=== PATIENT | female | born 1955 | race Caucasian/White ===

== ENCOUNTER → 2022-01-28 | Outpatient (CLI) | payer MEDICARE ==
[~2022-01-28] MED LIST: ADVIL200 MG PO; AMOXICILLIN 8751 TAB PO; B-12 100 MCG; CALCIUM + D 6001 TA1 PO; CIPRO 250MG TA250 MG PO; COLACE 100100 MG/CAP PO; DOXYCYCLINE 10100 MG PO; ELITE MAGNESIUM1 TAB PO; FERROUS GLUCONA27 MG PO; INSLANT SQ; INSULIN; INSULIN N (N100 U/ML SQ; LANTUS100 U/ML SC; LEVAMIR INSULIN; LEVOTHYROXINE PO; LEXAPRO20 MG PO; MIRALAX PA17 GM/Dose PO; MULTIPLE VITAMI1 CAP PO; NEURONTIN100 MG/CAP PO; NO HOME MEDICATIONS; NORCO 325 MG-7.1 TAB PO; NOVLOG SQ; NOVOLOG 100U100 U/M1 SC; NOVOLOG 100U100 U/M1 SQ; POTASSIMIN75 MG PO; POTASSIUM99 MG PO; PROGESTRONE; PROVERA 10MG10 MG PO; SANTYL OINT15 GM TP; SENOKOT S 50 MG1 TAB PO; SILVADEN TP; SIMETHICONE80 MG PO; THERAGRAN1 TA1 PO; TYLENOL 325MG325 MG PO; VITAMIN C500 MG PO; VITAMIN E100 I3 PO; ZESTRIL 5MG5 MG PO; ZINC10 M1 PO
== END ==
LOC: MC.RAD 09:48
DX: Z12.31 Encounter for screening mammogram for malignant neoplasm of breast (principal)

== ENCOUNTER → 2022-06-24 | Outpatient (CLI) | payer MEDICARE ==
[2022-06-24 13:09] LABS: HEMOGLOBIN 11.5 g/dl (12.5-16.0); MEAN CELL VOLUME 93 fl (80.0-100.0); MEAN CORPUSCULAR HEMOGLOBIN 31 pg (27-31); MEAN CORPUSCULAR HGB CONC 33 g/dl (33.0-37.0); MEAN PLATELET VOLUME 8.9 fl (7.4-10.4); PLATELET COUNT 185 K/mm3 (130-400); RED BLOOD COUNT 3.74 M/mm3 (4.10-5.30); REDCELL DISTRIBUTION WIDTH-CV 12.4 % (11.5-14.5)
[2022-06-24 13:16] LABS: HEMATOCRIT 34.7 % (37.0-47.0)
[2022-06-24 13:30] LABS: ALBUMIN 2.4 gm/dL (3.4-4.8); BILIRUBIN,TOTAL 1.2 mg/dL (0.2-1.2); CALCIUM 9.7 mg/dL (8.4-10.2); CREATININE, serum 0.92 mg/dL (0.57-1.11); POTASSIUM 4.1 mmol/L (3.5-4.5); TOTAL PROTEIN 6.9 gm/dL (6.2-8.1)
[2022-06-24 14:15] LABS: BAND 6 % (0-10); LYMPHOCYTE 6 % (20.0-51.0); METAMYELOCYTE 4 % (0-0); MYELOCYTE 1 % (0-0); NEUTROPHILS 81 % (42.0-75.2)
[2022-06-24 14:19] LABS: PLATELET ESTIMATE NORMAL (NORMAL)
[2022-06-26 07:57] LABS: PATHOLOGY DIFF REVIEW OK
== END ==
LOC: COL.LAB 12:39
PROVIDERS: Nurse Practitioner Family
DX: R19.04 Left lower quadrant abdominal swelling, mass and lump (principal)

== ENCOUNTER 2022-06-30 11:38 | Inpatient (IN) | payer MEDICARE ==
[~2022-06-30] VITALS: Ht 149.9 cm; Wt 133.5 kg
[2022-06-30] VITALS (10 sets, daily range): BP systolic 101–131; BP diastolic 34–54; PULSE 69–81; TEMP 98.3–99.8
--- NOTE | 2022-06-30 13:40 | NUR ---
PT BROUGHT TO ROOM 332 VIA WHEELCHAIR. PT A&O AND INDEPENDENT IN ROOM.
--- NOTE | 2022-06-30 15:13 | NUR ---
PT A&OX4 RESTING IN BED. ADMISSION ASSESSMENT COMPLETE. PT RATES ABDOMINAL PN A 03/08. REDNESS PRESENT. VSS. PT USES CANE FOR AMBULATION. PLAN FOR OR AT 1630 FOR ABCESS DRAIN PLACEMENT. NO NEEDS AT THIS TIME. CALL LIGHT WITHIN REACH.
[2022-06-30 15:44] LABS: HEMOGLOBIN 11.1 g/dl (12.5-16.0); MEAN CELL VOLUME 94 fl (80.0-100.0); MEAN CORPUSCULAR HEMOGLOBIN 31 pg (27-31); MEAN CORPUSCULAR HGB CONC 33 g/dl (33.0-37.0); MEAN PLATELET VOLUME 8.9 fl (7.4-10.4); PLATELET COUNT 222 K/mm3 (130-400); RED BLOOD COUNT 3.64 M/mm3 (4.10-5.30); REDCELL DISTRIBUTION WIDTH-CV 12.6 % (11.5-14.5)
[2022-06-30 15:48] LABS: HEMATOCRIT 34.2 % (37.0-47.0)
[2022-06-30 16:07] LABS: ALBUMIN 2.1 gm/dL (3.4-4.8); BILIRUBIN,TOTAL 0.5 mg/dL (0.2-1.2); CALCIUM 8.6 mg/dL (8.4-10.2); CREATININE, serum 0.82 mg/dL (0.57-1.11); POTASSIUM 3.7 mmol/L (3.5-4.5); TOTAL PROTEIN 6.3 gm/dL (6.2-8.1)
[2022-06-30] MEDS ORDERED: ULTRAM 50MG TAB50 MG PO (16:24)
[2022-06-30] MEDS ORDERED: AMOXICILLIN 8751 TAB PO (16:25)
[2022-06-30] MEDS ORDERED: GLUCOPHAGE1000 MG PO (16:26)
[2022-06-30] MEDS ORDERED: NEURONTIN300 MG/CAP PO (16:27)
[2022-06-30] MEDS ORDERED: SYNTHROID0.05 MG/TA PO (16:28)
[2022-06-30] MEDS ORDERED: WELLBUTRIN SR100 M1 PO (16:28)
[2022-06-30] MEDS ORDERED: FOSAMAX 70MG TA70 MG PO (16:29)
[2022-06-30] MEDS ORDERED: AMARYL 2MG T2 MG/TAB PO (16:29)
[2022-06-30] MEDS ORDERED: COZAAR 50MG50 MG/TAB PO (16:30)
[2022-06-30] MEDS ORDERED: LEXAPRO20 MG PO (16:31)
[2022-06-30] MEDS ORDERED: CYMBALTA 60MG60 MG PO (16:34)
[2022-06-30 16:45] LABS: BAND 9 % (0-10); LYMPHOCYTE 12 % (20.0-51.0); METAMYELOCYTE 1 % (0-0); NEUTROPHILS 71 % (42.0-75.2); PLATELET ESTIMATE NORMAL (NORMAL)
[2022-06-30 16:46] LABS: HYPOCHROMIA 1+
--- NOTE | 2022-06-30 22:15 | NUR ---
Patient A/Ox4, with IV infusing well to left hand, dressing to abdomen CDI, denies nausea/vomiting, BP is on the low side, denies any dizziness, able to get up the the bathroom and urinated and had a loose bm, call light and personal items within reach, will continue to monitor.
[2022-07-01 03:35] VITALS: BP 107/43; PULSE 69; TEMP 99.3
--- NOTE | 2022-07-01 06:17 | NUR ---
Patient got up to the bathroom to pee, noticed a scant amount of drainage serosangenous fluids, reinforced the dressing with 4x4 gauze and ,microfoam, will continue to monitor.
[2022-07-01 08:00] VITALS: BP 116/66; PULSE 75; TEMP 98
[2022-07-01 11:36] VITALS: BP 115/49; PULSE 70; TEMP 98.7
--- NOTE | 2022-07-01 12:00 | NUR ---
Dressing to abd is leaking. Bulky dressing removed. pt does have gauze in wound which I left in place. New gauze and ABD applied over open wound and foam tape held in place. pt tolerated well. Pt is getting up around in her room independently. States that only has some pulling when she gets up, otherwise pain is not bad. No other needs, call light within reach
--- NOTE | 2022-07-01 13:40 | NUR ---
SW met with the patient to discuss discharge plan. The patient lives alone in [place]. She reports independence with ADLs and has a cane. The patient's PCP is Dr. Rui Benitez and she receives her medications from [facility]. The patient's DPOA-HC is in EMR and it designates her cousin, Kimber Meléndez (ph#[phone]). The alternate is her friend, Anaya Tran. The patient plans to return home upon discharge. She states that she does not drive anymore and her friends assist her with transportation. No additional needs at this time. *Discharge plan: home*
[2022-07-01 15:38] VITALS: BP 108/35; PULSE 80; TEMP 99
--- NOTE | 2022-07-01 16:24 | NUR ---
Pt continues to do well. Receiving IV antibiotics. Drsg CDI at this time. PRN Tylenol given for increase in abd pain
[2022-07-01 19:32] VITALS: BP 111/47; PULSE 74; TEMP 100.1
[2022-07-01 23:32] VITALS: BP 122/42; PULSE 75; TEMP 99.3
[2022-07-02 03:36] VITALS: BP 114/44; PULSE 67; TEMP 98.6
--- NOTE | 2022-07-02 06:28 | NUR ---
ABD PAD AND TAPE CHANGED 2X THIS SHIFT DUE TO DRAINAGE. PACKING TAIL CUT TO AVOID PERIAREA CONTAMINATION.
[2022-07-02 07:33] VITALS: BP 117/36; PULSE 65; TEMP 97.8
[2022-07-02 07:50] LABS: MEAN CELL VOLUME 95 fl (80.0-100.0); MEAN CORPUSCULAR HEMOGLOBIN 31 pg (27-31); MEAN CORPUSCULAR HGB CONC 32 g/dl (33.0-37.0); PLATELET COUNT 218 K/mm3 (130-400); RED BLOOD COUNT 3.28 M/mm3 (4.10-5.30)
[2022-07-02 07:54] LABS: HEMATOCRIT 31.1 % (37.0-47.0)
[2022-07-02 08:07] LABS: CALCIUM 7.8 mg/dL (8.4-10.2); CREATININE, serum 0.7 mg/dL (0.57-1.11); POTASSIUM 3.7 mmol/L (3.5-4.5)
[2022-07-02 08:46] LABS: BAND 1 % (0-10); EOSINOPHIL 3 % (0-4); HYPOCHROMIA 1+; LYMPHOCYTE 14 % (20.0-51.0); METAMYELOCYTE 2 % (0-0); MYELOCYTE 6 % (0-0); NEUTROPHILS 66 % (42.0-75.2); PLATELET ESTIMATE NORMAL (NORMAL)
[2022-07-02 12:00] VITALS: PULSE 72
[2022-07-02 15:27] VITALS: BP 125/50; PULSE 72; TEMP 98.9
--- NOTE | 2022-07-02 19:30 | NUR ---
RECEIVED CHANGE OF SHIFT REPORT FROM DAY SHIFT RN.
[2022-07-02 20:29] VITALS: BP 112/40; PULSE 67; TEMP 99
--- NOTE | 2022-07-02 23:35 | NUR ---
DRSG CHANGE TO SURGICAL SITE.
[2022-07-03 00:02] VITALS: BP 116/47; PULSE 69; TEMP 99.2
[2022-07-03 04:52] VITALS: BP 118/43; PULSE 67; TEMP 98.4
[2022-07-03 06:31] LABS: HEMOGLOBIN 10.4 g/dl (12.5-16.0); MEAN CELL VOLUME 96 fl (80.0-100.0); MEAN CORPUSCULAR HEMOGLOBIN 30 pg (27-31); MEAN CORPUSCULAR HGB CONC 32 g/dl (33.0-37.0); MEAN PLATELET VOLUME 8.9 fl (7.4-10.4); PLATELET COUNT 231 K/mm3 (130-400); RED BLOOD COUNT 3.42 M/mm3 (4.10-5.30)
[2022-07-03 06:39] LABS: HEMATOCRIT 32.7 % (37.0-47.0)
--- NOTE | 2022-07-03 06:44 | NUR ---
CHANGE OF SHIFT REPORT GIVEN TO DAY SHIFT RNPEMA. PATIENT UP IN ROOM PER SELF. INT CONTINUES, CONTINUES ON IV ANTIBIOTICS.
[2022-07-03 07:33] VITALS: BP 122/51; PULSE 71; TEMP 98.5
[2022-07-03 07:39] LABS: BAND 9 % (0-10); EOSINOPHIL 5 % (0-4); LYMPHOCYTE 6 % (20.0-51.0); METAMYELOCYTE 4 % (0-0); NEUTROPHILS 70 % (42.0-75.2); PLATELET ESTIMATE NORMAL (NORMAL)
--- NOTE | 2022-07-03 08:00 | NUR ---
Assessment complete. A&Ox4. Denies nausea/shortness of breath. Rating pain 6/10-states she woke up with a headache. Tylenol given per dr order. Dressing to abdomen CDI. VS stable. INT to left hand flushes without difficulty. Plan of care discussed for this shift to include meds/pain control/calling for questions/concerns. Verbalizes understanding. Call light in reach. Will monitor.
--- NOTE | 2022-07-03 09:45 | NUR ---
Dr Purdy at bedside for rounds. Packing to incision site changed at this time. Call light in reach. Will monitor.
--- NOTE | 2022-07-03 12:00 | NUR ---
Resting in bed watching TV. Denies current needs. Call light in reach. Will monitor.
[2022-07-03 12:22] VITALS: BP 135/45; PULSE 72; TEMP 97.5
--- NOTE | 2022-07-03 15:07 | NUR ---
The PA notified [facility] that the patient had some questions about home health. TINO met with the patient to follow up and discuss home health services. The patient states that she was interested in home health if she needed wound care, but does not believe she will need would care now. [facility] staffed with the PA and they do not believe the patient will need wound care. TINO provided the patient with Medicare.gov's list of home health agencies that serve [place], in the event she would need wound care or the patient changes her mind. TINO provided her with [facility]'s phone number. *Discharge plan: home*
[2022-07-03 16:43] VITALS: BP 113/51; PULSE 66; TEMP 98.1
--- NOTE | 2022-07-03 18:21 | NUR ---
Patient had an uneventful day. Received tylenol x1 for headache this AM. Blood sugars range from 140s-220s. Dressing to abdomen remains CDI. VS remain stable. Denies current questions/concerns. Call light in reach. Will monitor.
[2022-07-03 20:49] VITALS: BP 119/48; PULSE 69; TEMP 98.4
--- NOTE | 2022-07-03 21:00 | NUR ---
Patient A/Ox4, VSS, NAD, dressing to abdomen clean, dry and intact, denies pain at the time of assessment, HS meds given, call light and personal items within reach, call light and personal items within reach.
[2022-07-04 00:05] VITALS: BP 146/56; PULSE 71; TEMP 98.4
[2022-07-04 04:43] VITALS: BP 113/41; PULSE 69; TEMP 98.2
[2022-07-04 07:16] LABS: HEMOGLOBIN 10.2 g/dl (12.5-16.0); MEAN CELL VOLUME 97 fl (80.0-100.0); MEAN CORPUSCULAR HEMOGLOBIN 30 pg (27-31); MEAN CORPUSCULAR HGB CONC 31 g/dl (33.0-37.0); MEAN PLATELET VOLUME 8.9 fl (7.4-10.4); PLATELET COUNT 245 K/mm3 (130-400); RED BLOOD COUNT 3.41 M/mm3 (4.10-5.30)
[2022-07-04 07:22] LABS: HEMATOCRIT 33.1 % (37.0-47.0)
[2022-07-04 07:54] VITALS: BP 129/46; PULSE 70; TEMP 98.8
[2022-07-04 08:16] LABS: NEUTROPHILS 76 % (42.0-75.2)
[2022-07-04 08:17] LABS: EOSINOPHIL 2 % (0-4); HYPOCHROMIA 3+; LYMPHOCYTE 17 % (20.0-51.0); PLATELET ESTIMATE NORMAL (NORMAL)
[2022-07-04 12:01] VITALS: BP 139/64; PULSE 66; TEMP 98.7
[2022-07-04 16:33] VITALS: BP 130/54; PULSE 77; TEMP 98.7
[2022-07-04 21:06] VITALS: BP 139/49; PULSE 77; TEMP 98.9
--- NOTE | 2022-07-04 23:00 | NUR ---
Patient A/Ox4, VSS, NAD, head to toe assessment done, reports headache tylenol given, HS meds given, able to voice needs, call light and personal items within reach.
[2022-07-05] VITALS (7 sets, daily range): BP systolic 116–125; BP diastolic 40–71; PULSE 68–91; TEMP 97.9–98.8
[2022-07-05 07:21] LABS: HEMOGLOBIN 10.4 g/dl (12.5-16.0); MEAN CELL VOLUME 97 fl (80.0-100.0); MEAN CORPUSCULAR HEMOGLOBIN 30 pg (27-31); MEAN CORPUSCULAR HGB CONC 31 g/dl (33.0-37.0); MEAN PLATELET VOLUME 8.7 fl (7.4-10.4); PLATELET COUNT 225 K/mm3 (130-400); RED BLOOD COUNT 3.48 M/mm3 (4.10-5.30); REDCELL DISTRIBUTION WIDTH-CV 13.2 % (11.5-14.5)
[2022-07-05 07:26] LABS: HEMATOCRIT 33.7 % (37.0-47.0)
[2022-07-05 08:42] LABS: BAND 9 % (0-10); LYMPHOCYTE 5 % (20.0-51.0); NEUTROPHILS 83 % (42.0-75.2); NUCLEATED RED BLOOD CELL 1 (0-6)
[2022-07-05 08:43] LABS: HYPOCHROMIA 3+; PLATELET ESTIMATE NORMAL (NORMAL)
--- NOTE | 2022-07-05 11:30 | NUR ---
Dressing changed at this time-wet to dry-tolerated well.
--- NOTE | 2022-07-05 17:55 | NUR ---
Patient has had an uneventful day. Showered and had dressing changed. Noted to have developed a rash to her abdomen/creases of limbs. Dr Lowery aware. Received tylenol x1 for a headache. Denies current needs. Call light in reach. Will monitor.
--- NOTE | 2022-07-06 01:02 | NUR ---
0045 PT COMPLAINING OF ITCHING TO RASH THAT IS LOCATED OVER BODY, TONIE CASTRO NOTIFIED, SEE MAR FOR ORDER.
[2022-07-06 04:05] VITALS: BP 131/54; PULSE 66; TEMP 97.4
[2022-07-06 06:54] LABS: HEMOGLOBIN 10.1 g/dl (12.5-16.0); MEAN CELL VOLUME 96 fl (80.0-100.0); MEAN CORPUSCULAR HEMOGLOBIN 30 pg (27-31); MEAN CORPUSCULAR HGB CONC 32 g/dl (33.0-37.0); MEAN PLATELET VOLUME 8.7 fl (7.4-10.4); PLATELET COUNT 232 K/mm3 (130-400); RED BLOOD COUNT 3.35 M/mm3 (4.10-5.30); REDCELL DISTRIBUTION WIDTH-CV 13.2 % (11.5-14.5)
[2022-07-06 08:12] VITALS: BP 115/36; PULSE 73; TEMP 97.9
[2022-07-06 08:13] LABS: BAND 3 % (0-10); HYPOCHROMIA 1+; LYMPHOCYTE 9 % (20.0-51.0); NEUTROPHILS 86 % (42.0-75.2); PLATELET ESTIMATE NORMAL (NORMAL)
[2022-07-06 12:17] VITALS: BP 127/46; PULSE 70; TEMP 97.6
--- NOTE | 2022-07-06 13:00 | NUR ---
Reports itching is "much better" since takine oral benadryl. Denies any other concerns or needs at this time. Will continue to monitor.
[2022-07-06 16:03] VITALS: BP 146/78; PULSE 70; TEMP 97.9
--- NOTE | 2022-07-06 16:09 | NUR ---
Dressing changed at this time. Site looks good; no drainage noted. Reporting abdominal pain after dressing change and cleansing under pannus. Will administer PRN pain medication.
[2022-07-06 19:25] VITALS: BP 131/45; PULSE 74; TEMP 98.8
[2022-07-06 23:45] VITALS: BP 146/62; PULSE 69; TEMP 98.6
[2022-07-07 04:14] VITALS: BP 130/51; PULSE 68; TEMP 98.7
[2022-07-07 06:49] LABS: HEMOGLOBIN 10.6 g/dl (12.5-16.0); MEAN CELL VOLUME 95 fl (80.0-100.0); MEAN CORPUSCULAR HEMOGLOBIN 30 pg (27-31); MEAN CORPUSCULAR HGB CONC 32 g/dl (33.0-37.0); MEAN PLATELET VOLUME 8.6 fl (7.4-10.4); PLATELET COUNT 232 K/mm3 (130-400); RED BLOOD COUNT 3.51 M/mm3 (4.10-5.30); REDCELL DISTRIBUTION WIDTH-CV 13.4 % (11.5-14.5)
[2022-07-07 06:50] LABS: HEMATOCRIT 33.4 % (37.0-47.0)
[2022-07-07 07:29] VITALS: BP 150/53; PULSE 72; TEMP 97.8
[2022-07-07 07:43] LABS: BAND 1 % (0-10); EOSINOPHIL 4 % (0-4); HYPOCHROMIA 2+; LYMPHOCYTE 12 % (20.0-51.0); METAMYELOCYTE 2 % (0-0); MYELOCYTE 2 % (0-0); NEUTROPHILS 76 % (42.0-75.2); PLATELET ESTIMATE NORMAL (NORMAL)
--- NOTE | 2022-07-07 10:00 | NUR ---
Notified by patient care nursing assistant that the pt. was on the floor. This nurse, 2 tractor trailer mechanic's and administrative nursing supervisor into room. Pt. assessed for injury. Pt. reports did not hit her head. Pt. does have a mild abraision to rt. knee, there is no bleeding. SULAIMAN Singer notified, new orders received. Vitals elevated will recheck. Attempted to stand pt. up with 4 assist and gait belt. Pt. was unable to get legs under herself. Al lift used to get pt. up. Pt. tolerated well. Pt. repositioned for comfort in bed. Pt. does reports pain to rt. knee. Pt.'s nurse notified. chief maintenance supervisor also notified.
--- NOTE | 2022-07-07 10:23 | NUR ---
PT FELL THIS AM WHILE GETTING UP TO THROW SOMETHING IN THE GARBAGE CAN, PHYSICIAN AWARE, VSS, PT REPORTS RIGHT KNEE PAIN, DENIES HITTING HER HEAD, PT REQUESTS PAIN MEDICATION FOR THE KNEE
[2022-07-07 10:46] LABS: CALCIUM 7.9 mg/dL (8.4-10.2); CREATININE, serum 0.73 mg/dL (0.57-1.11); POTASSIUM 4.2 mmol/L (3.5-4.5)
[2022-07-07 11:35] VITALS: BP 116/58; PULSE 68; TEMP 97.5
[2022-07-07 16:07] VITALS: BP 112/61; PULSE 69; TEMP 97.6
--- NOTE | 2022-07-07 16:22 | NUR ---
Propellant Charge Loader met with patient to discuss plan for voting. Patient advised she doesn't know her ID number so SW cannot assist with securing ballot. SW attended rounds with the team. Initially patient to discharge home, however had a fall this morning. Patient may still discharge later today. PT/OT had been recommending home.
[2022-07-07 21:27] VITALS: BP 142/51; BP 148/48; PULSE 70; TEMP 98.7
[2022-07-08 00:05] VITALS: BP 136/61; PULSE 70; TEMP 99
[2022-07-08 04:25] VITALS: BP 134/58; PULSE 65; TEMP 98.7
[2022-07-08 07:37] VITALS: BP 120/68; PULSE 68; TEMP 98.2
[2022-07-08] MEDS ORDERED: CEPHALEXIN500 M1 PO (08:48)
[2022-07-08 11:55] VITALS: BP 129/58; PULSE 66; TEMP 98.1
--- NOTE | 2022-07-08 12:42 | NUR ---
Bar Attendant attended clinical rounds with the team and patient to discharge home today. Patient is interested in Home Health services, so TINO met with patient and provided Medicare.gov list of HH agencies. Patient selected [facility]. ITNO also presented IM form to patient who verbalized understanding and gave verbal consent as signature as she is in contact isolation. TINO placed form in chart and provided copy to patient. TINO contacted Lico with [facility] and faxed referral with discharge orders. Lico advised they can accept. Discharge Plan: Home with [facility]
== END 2022-07-08 14:27 | disposition home or self-care (01) | DRG 603 ==
LOC: SURG 11:38
PROVIDERS: Physician Assistant; Surgery; ADMIT Internal Medicine
PROC: 0J980ZX Drainage of Abdomen Subcutaneous Tissue and Fascia, Open Approach, Diagnostic (ICD-10-PCS; principal; 2022-06-30 18:30)
DX: L02.211 Cutaneous abscess of abdominal wall (principal); E87.1 Hypo-osmolality and hyponatremia; Z68.43 Body mass index [BMI] 50.0-59.9, adult; E03.9 Hypothyroidism, unspecified; F32.A Depression, unspecified; M81.0 Age-related osteoporosis without current pathological fracture; E11.40 Type 2 diabetes mellitus with diabetic neuropathy, unspecified; I10 Essential (primary) hypertension; Z66 Do not resuscitate; E66.01 Morbid (severe) obesity due to excess calories; R16.2 Hepatomegaly with splenomegaly, not elsewhere classified; K76.0 Fatty (change of) liver, not elsewhere classified; E83.52 Hypercalcemia; E78.5 Hyperlipidemia, unspecified; B95.61 Methicillin susceptible Staphylococcus aureus infection as the cause of diseases classified elsewhere; D72.829 Elevated white blood cell count, unspecified; L29.9 Pruritus, unspecified; M25.561 Pain in right knee; E83.42 Hypomagnesemia; Y92.238 Other place in hospital as the place of occurrence of the external cause; M17.11 Unilateral primary osteoarthritis, right knee; W18.39XA Other fall on same level, initial encounter; Y93.89 Activity, other specified; Z90.89 Acquired absence of other organs; Z79.890 Hormone replacement therapy; Z86.718 Personal history of other venous thrombosis and embolism; Z92.21 Personal history of antineoplastic chemotherapy; Z90.710 Acquired absence of both cervix and uterus; Z79.4 Long term (current) use of insulin; Z92.3 Personal history of irradiation; Z85.42 Personal history of malignant neoplasm of other parts of uterus; Z88.1 Allergy status to other antibiotic agents; Z88.8 Allergy status to other drugs, medicaments and biological substances
CPT/HCPCS: G0378; J0690; J1200; J1815; J2060; J2405; J2543; J2704; J3010; J3370; J3475; J7030; J7040; J7050